=== PATIENT | male | born 1985 | race Caucasian/White ===

== ENCOUNTER 2020-05-09 01:37 | Observation (INO) | payer SELFPAY ==
[~2020-05-09] VITALS: Ht 172.7 cm; Wt 95.8 kg
--- NOTE | 2020-05-09 01:40 | NUR ---
AMBULATED TO ROOM WITH STEADY GAIT.
[2020-05-09 02:05] LABS: HEMATOCRIT 45.6 % (39.0-50.0); HEMOGLOBIN 15.9 g/dl (14.0-18.0); IMMATURE GRANULOCYTES 0.4 % (0.0-5.0); MEAN CELL VOLUME 92.7 fL CALC (80.0-100.0); MEAN CORPUSCULAR HGB 32.3 pG CALC (26.0-32.0); MEAN CORPUSCULAR HGB CONC 34.9 g/dL CAL (32.0-36.0); NEUT# 6.25 thou/uL (1.82-7.42); RED BLOOD COUNT 4.92 mill/uL (4.70-6.10); RED CELL DISTRI WIDTH 11.9 % (11.5-15.5)
[2020-05-09 02:21] LABS: ALBUMIN 5.1 g/dL (3.2-5.0); ALKALINE PHOSPHATASE 60 u/l (38-126); ANION GAP 17 (6-22 (CALC)); BILIRUBIN, TOTAL 2.2 mg/dL (0.0-1.4); BUN 21 mg/dL (9-20); BUN/CREATININE RATIO 18 (12-20 (CALC)); CARBON DIOXIDE 23 mmol/l (22-30); CHLORIDE 105 mmol/l (95-108); CREATININE 1.2 mg/dL (0.7-1.3); GFR > 60 ML/MIN (>=60 (CALC)); GFR FOR AFR.AMER. > 60 ML/MIN (>=60 (CALC)); POTASSIUM 3.5 mmol/l (3.5-5.1); SGOT/AST 33 u/l (17-59); SODIUM 142 mmol/l (137-146)
[2020-05-09 02:26] LABS: LIPASE 49 u/l (23-300)
--- NOTE | 2020-05-09 02:30 | NUR ---
RESTING QUIETLY PAIN FREE.
--- NOTE | 2020-05-09 03:30 | NUR ---
VSS. NO APPARENT DISTRESS. RESTING COMFORTABLY.
[2020-05-09 03:39] LABS: URINE BLOOD DIPSTICK NEGATIVE (NEGATIVE); URINE COLOR YELLOW; URINE GLUCOSE - DIPSTICK NEGATIVE (NEGATIVE); URINE KETONE TRACE mg/dL (NEGATIVE); URINE LEUK ESTERASE NEGATIVE (NEGATIVE); URINE NITRITE - DIPSTICK NEGATIVE (Negative); URINE PROTEIN - DIPSTICK NEGATIVE (NEG-TRACE); URINE SPECIFIC GRAVITY >=1.030; URINE UROBILINOGEN - DIPSTICK 0.2 E.U./dL (0.2)
[2020-05-09 03:42] LABS: URINE BILIRUBIN - DIPSTICK SMALL (NEGATIVE)
--- NOTE | 2020-05-09 04:30 | NUR ---
COMFORTABLE AWAITING DISPO.
--- NOTE | 2020-05-09 05:05 | NUR ---
RECEIVED HAND OFF COMMUNICATION REPORT FROM ER VIA FAX @ [phone]. MANUFACTURING LEADELLI GIVENS CALLED WITH REPORT @ [id number]. PATIENT ARRIVED TO ROOM IN UNIT @ [id number].
[2020-05-09 05:15] VITALS: BP 127/84
--- NOTE | 2020-05-09 05:15 | NUR ---
Admission Note Report Given to: ELLI MCCANN Transported by: X Wheelchair Stretcher Transported with: X Nurse Transporter X Patent IV O2 X Car Wash Manager Location: ICU X [facility]
--- NOTE | 2020-05-09 05:15 | NUR ---
PATIENT ARRIVED TO ROOM IN UNIT ACCOMPANIED BY ELLI GIVENS VIA WHEELCHAIR. PT IS A&O X 4, NO S/SX OF DISTRESS OR DISCOMFORT OBSERVED, PT CURRENTLY DENIES ANY CP OR SOB. RESPIRATION ON EVEN AND NON-LABORED, ON ROOMAIR. #20G PIV IN LAC- SL; PIV IS PATENT, CLEAN, DRY, AND INTACT. TELE IN PLACE. SAFETY PRECAUTION IN PLACE, NON-SLIP SOCK ON, CALL LIGHT WITHIN REACH. PT ORIENTED TO UNIT, TV, ROOM, AND CALL LIGHT SYSTEM.
[2020-05-09 07:06] VITALS: BP 119/58
--- NOTE | 2020-05-09 08:00 | NUR ---
PATIENT RESTING IN THE BED ALERT, DENIES C/P DENIES ANY OTHER PAIN. ROOM MADE QUIET AT HIS REQUEST. REPOSITIONED FOR COMFORT, SIDE RAILS UP CALL LIGHT IN REACH BED LOCKED IN LOW POSITION. NO DISTRESS NOTED AT THIS TIME. wILL CONTINUE TO MONITOR THE PATIENT.
[2020-05-09 09:00] LABS: CHOLESTEROL HDL RATIO 4.3 (<4.4 (CALC))
[2020-05-09 11:00] VITALS: BP 105/56
--- NOTE | 2020-05-09 11:17 | NUR ---
[place]chel AND TELE REMOVED. DISCHARGE ORDERS GIVEN UNDERSTOOD AND SIGNED BY THE PATIENT. PT STATES HE IS CALLING FOR A RIDE AND WILL LET US KNOW WHEN THEY GET HERE.
--- NOTE | 2020-05-09 12:41 | NUR ---
PATIENT WAITING FOR A RIDE. NO DISTRESS NOTED AT THIS TIME.
--- NOTE | 2020-05-09 15:40 | NUR ---
Discharge instructions given. Patient verbalizes understanding of same. Discharged in stable condition via Wheelchair to Home with staff. All belongings sent with pt.
== END 2020-05-09 15:40 | disposition home or self-care (01) | DRG 313 ==
LOC: ED 01:37 → ED-I 04:24 → ED 04:43 → MS2 04:44
PROVIDERS: Emergency Medicine; ADMIT Internal Medicine; ATTEND Internal Medicine
DX: R07.9 Chest pain, unspecified (principal); F41.0 Panic disorder [episodic paroxysmal anxiety]; I10 Essential (primary) hypertension; Z82.49 Family history of ischemic heart disease and other diseases of the circulatory system; Z20.822 Contact with and (suspected) exposure to COVID-19
CPT/HCPCS: G0378